=== PATIENT | female | born 1970 | race Caucasian/White ===

== ENCOUNTER 2017-01-25 04:22 | Emergency (ER) | payer MEDICAID ==
[~2017-01-25] VITALS: Ht 149.9 cm; Wt 50.0 kg
[2017-01-25 04:24] VITALS: BP 126/96; PULSE 85; RESP 18; TEMP 97.7; O2SAT 99
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
[2017-01-25] MEDS ORDERED: IBUP800T23 PO (04:37)
[2017-01-25] MEDS ORDERED: TOPA50TA7 PO (04:37)
[2017-01-25] MEDS ORDERED: FLUT1SPR5 EACH NARE (04:37)
[2017-01-25] MEDS ORDERED: SERO100T PO (04:37)
[2017-01-25] MEDS ORDERED: ADDE20 PO (04:37)
[2017-01-25] MEDS ORDERED: DIAZ10 PO (04:41)
[2017-01-25] MEDS ORDERED: ACETAMINOPHEN/HYDROcodone 325 MG/5 MG TAB PO ONE (04:45)
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
== END 2017-01-25 06:42 | disposition home or self-care (01) ==
LOC: NEPE 04:22
DX: S09.90XA Unspecified injury of head, initial encounter (principal); Y04.0XXA Assault by unarmed brawl or fight, initial encounter; Y93.9 Activity, unspecified; Y92.9 Unspecified place or not applicable
CPT/HCPCS: 70450